=== PATIENT | male | born 1960 | race African-American/Black ===

== ENCOUNTER 2022-04-17 13:59 | Emergency (ER) | payer OTHER, MEDICAID ==
[~2022-04-17] VITALS: Ht 172.7 cm; Wt 68.0 kg
[2022-04-17 14:02] VITALS: BP_SYST 110
--- NOTE | 2022-04-17 14:02 | NUR ---
Patient triaged and ON AMBULANCE GURNEY. VSS and patient appears in no acute distress at this time. Accompanied by EMT'S , awaiting available bed, and MD notified of need for MSE.
--- NOTE | 2022-04-17 14:05 | NUR ---
PT BIBA FROM HOME C/O OD ON UNK MEDICATION. UPON QUESTIONING PT, PT STATES HE TAKES "OXY 20MG" AT HOME AND "TOOK 1 OR 2" PRIOR TO ARRIVAL. PT IS SEDATED BUT AOX3 WHEN AWAKENED WITH TOUCH. MD MADE AWARE AND ORDER FOR NARCAN TO BE GIVEN. VSS
[2022-04-17] MEDS ORDERED: NALOXONE HCL 2 MG/2 ML SYR ONE (14:12)
[2022-04-17] MEDS ORDERED: NALOXONE HCL 2 MG/2 ML SYR IVP ONE (14:15)
--- NOTE | 2022-04-17 14:20 | NUR ---
ER DR. ZAPIEN EXAMINING PT
--- NOTE | 2022-04-17 14:24 | NUR ---
PT IS NOW AOX4, ANSWERING QUESTIONS APPROPRIATELY, STATES HE ALSO TOOK SOME XANAX THIS MORNING WELL. MADE AWARE
[2022-04-17 14:34] VITALS: BP_SYST 110
--- NOTE | 2022-04-17 14:34 | NUR ---
Patient does not wish to proceed with medical care recommended by DR. ZAPIEN. Patient given information related to possible complications, up to and including , which could occur as a result of leaving hospital at this time. Patient verbalizes understanding of risks involved leaving against medical advice. Patient has signed AMA form.
== END 2022-04-17 14:34 | disposition left against medical advice (07) ==
LOC: SED 13:59
DX: M54.50 Low back pain, unspecified (principal); T40.2X1A Poisoning by other opioids, accidental (unintentional), initial encounter; T40.601A Poisoning by unspecified narcotics, accidental (unintentional), initial encounter; Z79.899 Other long term (current) drug therapy; Y92.89 Other specified places as the place of occurrence of the external cause
CPT/HCPCS: 99283; 96374; J2310